=== PATIENT | female | born 1980 | race Caucasian/White ===

== ENCOUNTER 2017-08-25 22:26 | Emergency (ER) | payer SELFPAY ==
--- NOTE | 2017-08-25 23:19 | ED Physician Documentation ---
Upper Respiratory Symptoms - HISTORIAN Historian: patient, spouse, child - HPI Stated Complaint: cough and congestion Chief Complaint: Cough/ Upper Respiratory Additional Information: RECURRENT COUGH OCC PROD [employer] MUCOID' HAS ABOUT THIS TIME YEARLY. PCP GIVES HER AZITH PLUS PRED-CONTINUES TO SMOKE Onset: days ago (3-4) Duration: intermittent episodes Context: recent foreign travel Severity: moderate Associated Symptoms: sore throat, chest pain, productive cough, shortness of breath. denies: fever, chills, bloody cough Worsened by Deep Breath: Yes - ROS CONST/EYES: denies: weakness, eye redness, eye itching CVS/RESP: none. denies: chest pain, shortness of breath LYMPH: denies: leg swelling GI/: none - PAST HX Lung Disease: COPD, bronchitis Surgeries/Procedures: cholecystectomy Allergies/Adverse Reactions: Allergies Allergy/AdvReac Type Severity Reaction Status Date / Time propoxyphene HCl Allergy Intermediate Hallucinati Verified 08/25/17 23:03 [From [facility]] ons Home Medications: Ambulatory Orders Medication Instructions Recorded Cetirizine HCl [Zyrtec] 10 mg PO D 08/25/17 - SOCIAL HX Smoking History: greater than 1 pack/day Alcohol Use: none Drug Use: none - FAMILY HX Family History: no significant history - REVIEWED ASSESSMENTS Nursing Assessment Reviewed: Yes Vitals Reviewed: Yes Upper Respiratory Symptoms - EXAM General Appearance: moderate distress EENT: eyes nml inspection Neck: normal inspection, thyroid normal, supple Respiratory: no resp. distress, wheezes, rales, rhonchi Abdomen: non-tender, no distention CVS: reg rate & rhythm, heart sounds normal Skin: color nml, no rash, warm,dry. No: cyanosis, diaphoresis Extremities: non-tender, normal range of motion Neuro/Psych: oriented x3, mood/affect nml Discharge Clincal Impression: RECURRENT BRONCHITIS W/COPD, NICOTIME ABUSE Referrals: Primary Doctor,No [Primary Care Provider] - 2 Days Comments: REC DC CIGARETTES. PT PREFERS NO CXR Condition: Good Disposition: 01 HOME, SELF-CARE Decision to Admit: NO Decision Time: 23:23
[2017-08-25 23:54] VITALS: BP 132/82
== END 2017-08-25 23:50 | disposition home or self-care (01) ==
LOC: ED 22:26
DX: J44.9 Chronic obstructive pulmonary disease, unspecified (principal); J40 Bronchitis, not specified as acute or chronic
CPT/HCPCS: 99283